=== PATIENT | male | born 1965 | race Caucasian/White ===

== ENCOUNTER 2019-12-05 13:29 | Outpatient (CLI) | payer MEDICARE, MEDICAID, SELFPAY ==
--- NOTE | ~2019-12-05 | PE_ITS ---
EXAMINATION: PET skull to mid thigh DATE: 12/05/2019 15:30 INDICATION: Other nonspecific abnormal finding of the lung field TECHNIQUE: Blood glucose level was 113 mg/dL. 10.367 mCi of 18-fluorodeoxyglucose (18-FDG) was admini stered i.v. Low dose computed tomography (CT) images were acquired from the base of the brain to the proximal thighs for attenuation correction and anatomic localization. Positron emission tomography (P ET) images were acquired in the same distribution beginning 66 minutes after injection. The dose-miguel th product (DLP) was 1064.78 mGy-cm. COMPARISON: 04/28/2010 FINDINGS: Head/neck: No abnormal FDG uptake is identified. FDG activity in the oral cavity without suspicious C T correlate is likely physiologic. Chest: There is a 2.5 x 1.6 cm left perihilar nodule with abnormal FDG uptake and SUV max of 13.2. Th ere are normal-sized bilateral axillary lymph nodes with low-level FDG uptake with SUV max measuring up to 2.0 on the left. The lungs are free of acute opacities. The heart size is normal. There is no p leural effusion or pneumothorax. Abdomen/pelvis/proximal thighs: Physiologic FDG activity is present in the bowel and urinary tract. T here is a 2.0 x 1.7 cm right external iliac chain lymph node with mild FDG uptake and SUV max of 2.7 . Right inguinal lymph nodes are subcentimeter in short axis diameter but are slightly asymmetric in size compared to the left and demonstrate low level FDG uptake with an SUV max of 2.1 The liver, sple en, pancreas, gallbladder, and adrenal glands are normal. The kidneys are unremarkable. There is calc ified atherosclerosis of the aorta and many of the other arteries. Musculoskeletal: No abnormal FDG uptake is identified. IMPRESSION: 1. Left perihilar nodule with abnormal FDG uptake, consistent with primary or metastatic malignancy. 2. Enlarged right external iliac chain lymph node with abnormal FDG uptake, reactive versus metastati c. 2. Mild FDG uptake in nonpathologically enlarged axillary and right inguinal lymph nodes, also reacti ve versus metastatic. Reviewed, dictated and finalized at location B. IMPRESSION: 1. Left perihilar nodule with abnormal FDG uptake, consistent with primary or m etastatic malignancy. 2. Enlarged right external iliac chain lymph node with abnormal FDG uptake, petty ctive versus metastatic. 2. Mild FDG uptake in nonpathologically enlarged axillary and right inguinal ly mph nodes, also reactive versus metastatic.
[2019-12-05 14:00] LABS: Glucose Point of Care 113 (65-105)
== END 2019-12-05 13:30 | disposition home or self-care (01) ==
PROVIDERS: PCP Internal Medicine; Visit Provider Internal Medicine Critical Care Medicine
DX: R91.8 Other nonspecific abnormal finding of lung field (principal)
CPT/HCPCS: 78815; A9552

== ENCOUNTER 2020-01-11 10:19 | Outpatient (CLI) | payer MEDICARE, MEDICAID, SELFPAY ==
--- NOTE | 2020-01-17 10:38 | WPDPFTINT ---
PFT Interpretation PFT Interpretation: This PFT met all criteria for ATS standards and reproducibility FEV/FVC post bronchodilator 34% FEV1 35% or 1.24 liters FVC 73% or 3.67 liters TLC 107% or 7.72 liters RV 179% RV/TLC 57% DLCO 53% when adjusted for alveolar volume but not adjusted for hemoglobin Flow volume loops showed significant expiratory coving. Impression: Severe airflow obstruction with air trapping and moderately reduced diffusion capacity. This pattern may be seen in COPD. Clinical correlation is advised.
--- NOTE | 2020-01-17 10:41 | WPDSIXMINUTE ---
Six Minute Walk Six Minute Walk: The patients O2 sats started at 96% and dropped as low as 96% Total walk distance 1025 feet conclusion: This patient does not qualify for home oxygen therapy.
== END 2020-01-11 10:20 | disposition home or self-care (01) ==
LOC: ANHPFT 10:21
PROVIDERS: PCP Internal Medicine; Visit Provider Internal Medicine Critical Care Medicine
DX: R06.02 Shortness of breath (principal); R94.2 Abnormal results of pulmonary function studies
CPT/HCPCS: 94060; 94726; 94729

== ENCOUNTER 2020-02-08 09:24 | Outpatient (CLI) | payer MEDICARE, MEDICAID, SELFPAY ==
--- NOTE | 2020-03-13 19:57 | WPDHOMESLEEP ---
Sleep Study - Home Unattended Date of Study: 02/08/20 Ordering Provider: Kanchan Roman MD Interpreting Physician: Kanchan Roman MD Home Sleep Study Type: Apnea Link Air Height: 1.83 m Weight: 102.058 kg Body Mass Index: 30.5 Neck Circumference (inches): 17.7 [place]: 5 Reason for Sleep Study shortness of breath while sleeping, gasping for breath at night, excessive daytime sleepiness Sleep History Mariano Morgan III is a 54 year-old man with COPD and a new diagnosis of lung cancer. He constantly snores and occasionally it is loud enough that others complain about it. He rarely awakens at night with heartburn, belching or coughing. He frequently wakes up from sleep feeling short of breath. He wakes up throughout the night. He has excessive daytime sleepiness. HE does not have morning headaches. He has taken sleeping pills in the past to help with his sleep, does not take them currently. He occasionally has trouble sleeping with a cold. He frequently wakes up gasping for breath at night, frequently has breathing problems at night observed by others. He occasionally sweats excessively at night. He occasionally falls asleep during the day, involuntarily but never while driving. He does not fall asleep during physical effort. He does not have loss of muscle tone with strong emotion. He does not have daytime difficulties due to excessive sleepiness. He never feels paralyzed on waking or falling asleep. He frequently has vivid dreamlike scenes upon awakening or falling asleep. He is not afraid to go to sleep. He occasionally has nightmares, occasionally remembers his dreams. He frequently has racing thoughts. He rarely feels sad or depressed. He occasionally feels anxious. He occasionally has muscular tension. He frequently notices parts of his body jerking and he frequently kicks at night. He does not have crawling or aching feelings in his legs at night or leg pain at night. He denies morning jaw pain and denies grinding his teeth during sleep. He frequently has bothered by pain during the day, rarely is awakened by pain at night. He rarely wakes up feeling stiff in the morning. He does not have sore achy muscles or spine pain in the morning. He has tremors, nightmares and fatigue. Normal bedtime is 8:00 p.m. falling asleep within a few hours waking between 3 and 5 times overnight. when he wakes up at night he will stay awake for 20 minutes or as long as 2 hours. He often wakes to urinate at night. He wakes the morning between 6 and 7:00 a.m.. He does not take naps. Most of the time he is tired in the morning for 3 hours or longer. Habits: Tobacco a half pack per day. He drinks tea. No alcohol or recreational drugs. [facility] Past Medical History Medical History (Updated 03/13/20 @ 20:35 by Kanchan Roman MD) Chronic pain COPD (chronic obstructive pulmonary disease) Hilar mass Hypersomnia Lung cancer Shortness of Breath Tobacco abuse Family History Family History (Updated 12/08/18 @ 15:08 by DOCTOR UNKNOWN) Mother Diabetes mellitus Sibling Diabetes mellitus Grandparent Family history of chronic obstructive pulmonary disease Social History Social History Smoking packs per day: 2 Smoking cigarettes per day: 40.0 Years smoked: 40 Smoking pack-years: 80.00 Smoking status: Current every day smoker Tobacco type: cigarettes Spiritual care concerns: No Medications Home Medications Medication Instructions Recorded Confirmed Type budesonide-formoterol HFA 160 2 puff INHALATION Q12H 01/03/20 02/12/20 History mcg-4.5 mcg/actuation aerosol inhaler nicotine See Rx Instructions TRANSDERM 01/03/20 02/12/20 Rx 21mg/24hr-14mg/24hr-7mg/24hr daily .COMPLEX #56 patch transderm patches,sequentl ipratropium 0.5 mg-albuterol 3 mg 3 ml INHALATION QID PRN #360 ml 01/18/20 02/12/20 Rx (2.5 mg base)/3 mL nebulization soln dexamethasone 4 mg PO DIRECTED #5 tablet 02/12/20 Rx
[2020-03-13 20:43] VITALS: BMI 30.5
== END 2020-02-08 09:25 | disposition home or self-care (01) ==
LOC: ANHCSM 09:24
PROVIDERS: PCP Internal Medicine; Visit Provider Internal Medicine Critical Care Medicine
DX: G47.33 Obstructive sleep apnea (adult) (pediatric) (principal)
CPT/HCPCS: 95806

== ENCOUNTER 2020-02-09 12:46 | Outpatient (CLI) | payer MEDICARE, MEDICAID, SELFPAY ==
--- NOTE | ~2020-02-09 | CT_ITS ---
EXAMINATION: CT chest w con DATE: 02/09/2020 13:30 INDICATION: Malignant neoplasm of upper lobe TECHNIQUE: Computed tomography (CT) of the chest was performed without intravenous contrast. Automate d exposure control and iterative reconstruction technique were employed. Exam dose: 435.52 mGy-cm to jacqui exam DLP. COMPARISON: None FINDINGS: There is a persistent approximately 1.7 x 2.5 cm mass in the left hilar area which may repr esent primary bronchogenic carcinoma or metastatic lymphadenopathy or lymphoma. This appears relative ly stable since 12/05/[address] scan. There are scattered nonenlarged mediastinal nodes are noted. There is mild discoid atelectasis or scarring in the right lung base, right lower lobe. There is a ca lcified pulmonary granuloma of the middle lobe. No pulmonary infiltrate or consolidation or pulmonary mass lesion is noted otherwise. No thoracic aortic aneurysm or dissection. Normal heart size. No pericardial or pleural effusion. Small sliding hiatal hernia. Normal morphology of the adrenal glands. The included upper abdominal structures are unremarkable. No suspicious osteolytic or osteoblastic lesions are noted. IMPRESSION: Persistent left hilar mass, suspicious for primary bronchogenic carcinoma or metastatic lymphadenopathy or less likely lymphoma; little interval change since 12/05/[address] scan Reviewed, dictated and finalized at Location [facility]. Reviewed, dictated and finalized at location A. [employer] IMPRESSION: Persistent left hilar mass, suspicious for primary bronchogenic ca rcinoma or metastatic lymphadenopathy or less likely lymphoma; little interval change since 12/05/[address] scan
== END 2020-02-09 12:47 | disposition home or self-care (01) ==
PROVIDERS: PCP Internal Medicine; Visit Provider Radiology Radiation Oncology
DX: C34.12 Malignant neoplasm of upper lobe, left bronchus or lung (principal)
CPT/HCPCS: 71260; Q9967

== ENCOUNTER 2020-04-30 09:06 | Outpatient (CLI) | payer MEDICARE, MEDICAID, SELFPAY ==
[2020-04-30 09:22] LABS: Basophils Absolute Auto 0.1 K/mm3 (0.0-0.1); Basophils Percent Auto 1.2 % (0.2-1.2); Eosinophils Absolute Auto 0.4 K/mm3 (0-0.3); Eosinophils Percent Auto 6.1 % (0-4.4); Hemoglobin 16.2 g/dL (14.0-18.0); Immature Granulocyte Absolute 0.02 K/mm3 (0.00-0.031); Immature Granulocyte Percent A 0.3 % (0-0.5); Lymphocytes Absolute Auto 1.22 K/mm3 (0.9-3.2); Lymphocytes Percent Auto 18.2 % (18.3-44.2); Mean Corpuscular HGB Conc 33.8 g/dl (32-36); Mean Corpuscular Hemoglobin 30.2 pg (26-34); Mean Corpuscular Volume 89.6 fl (80-100); Mean Platelet Volume 8.8 fl (7.4-10.4); Monocytes Absolute Auto 0.5 K/mm3 (0.1-0.6); Monocytes Percent Auto 7.5 % (2.6-8.5); Neutrophils Absolute Auto 4.5 K/mm3 (1.3-6.7); Neutrophils Percent Auto 66.7 % (45.5-73.1); Platelet Count Result 260 k/mm3 (150-375); Red Blood Count 5.36 M/mm3 (4.6-6.20); Red Cell Distribution Width 12.6 % (11.5-14.5); White Blood Count 6.7 K/mm3 (4.5-10.0)
[2020-04-30 09:28] LABS: Blood Urea Nitrogen 20 mg/dL (8-26); Carbon Dioxide 27 mmol/L (22-30); Chloride 102 mmol/L (98-109); Estimated Glomerular Filt Rate > 60; Glucose 157 mg/dL (70-105); Potassium 4.2 mmol/L (3.5-4.9); Sodium 137 mmol/L (138-146)
[2020-04-30 12:59] LABS: Alanine Aminotransferase 21 U/L (4-50); Albumin Level 3.8 g/dL (3.5-5.1); Alkaline Phosphatase 94 U/L (38-126); Anion Gap 6 mmol/L (8-16); Aspartate Amino Transferase 23 U/L (17-59); Bilirubin,Total 0.5 mg/dL (0.2-1.3); Blood Urea Nitrogen 19 mg/dL (9-20); Carbon Dioxide 28 mmol/L (22-30); Chloride 103 mmol/L (98-107); Estimated Glomerular Filt Rate > 60; Glucose 160 mg/dL (75-110); Potassium 4.5 mmol/L (3.4-5.0); Sodium 137 mmol/L (137-145)
== END 2020-04-30 09:07 | disposition home or self-care (01) ==
PROVIDERS: PCP Internal Medicine; Visit Provider Internal Medicine Hematology & Oncology
DX: C34.02 Malignant neoplasm of left main bronchus (principal)
CPT/HCPCS: 36415; 80048; 80053; 85025

== ENCOUNTER 2020-05-08 13:06 | Outpatient (CLI) | payer MEDICARE, MEDICAID, SELFPAY ==
--- NOTE | ~2020-05-08 | CT_ITS ---
EXAMINATION: CT diagnostic chest w con DATE: 05/08/2020 13:28 INDICATION: Malignant neoplasm of the left upper lobe. TECHNIQUE: Computed tomography (CT) of the chest was performed with 75 cc Omnipaque 350 intravenous c ontrast. The dose-length product was 419.15 mGy-cm. Automated exposure control and iterative reconstr uction technique were employed. COMPARISON: CT dated 02/09/2020 FINDINGS: Decreased size of left hilar mass measuring 2.5 x 1.1 cm compared with 2.9 x 1.8 cm on prio r examination. No significant pleural or pericardial effusion. Heart size normal. Thyroid gland unrem arkable. Stable 1.5 cm left adrenal nodule, likely benign adenoma. Fatty infiltration of the liver. There is e mphysema. Right lower lobe atelectasis. There is right middle lobe atelectasis/scarring no endobronch ial lesions. No suspicious pulmonary nodules or masses. No osteolytic or osteoblastic lesions.. IMPRESSION: 1. Decreased size of left hilar mass, likely representing interval response to therapy for known eva gnancy. 2: Emphysema. Reviewed, dictated and finalized at location B. [employer] IMPRESSION: 1. Decreased size of left hilar mass, likely representing interval response to therapy for known malignancy. 2: Emphysema.
== END 2020-05-08 13:07 | disposition home or self-care (01) ==
PROVIDERS: PCP Internal Medicine; Visit Provider Internal Medicine Hematology & Oncology
DX: C34.02 Malignant neoplasm of left main bronchus (principal); J43.9 Emphysema, unspecified
CPT/HCPCS: 71260; Q9967

== ENCOUNTER 2020-08-07 13:15 | Outpatient (CLI) | payer MEDICARE, MEDICAID, SELFPAY ==
--- NOTE | ~2020-08-07 | CT_ITS ---
EXAMINATION: CT diagnostic chest w con EXAM DATE: 08/07/2020 13:44 INDICATION: Lung cancer left-sided. TECHNIQUE: Spiral CT of the chest following intravenous injection of 75 mL Omnipaque 350. Axial, cor onal and sagittal images of the chest were reviewed. Coronal maximum intensity pixel images of chest reviewed. The dose-length product (DLP) for this examination was 292.00 mGy-cm. The exposure was t ailored according to patient size (auto mA exposure control), and iterative reconstruction (ASIR) was used as additional dose reduction technique. Comparison is made to prior examination from 05/08/2020, 02/08/2021. FINDINGS: Patient has infiltrative left hilar masslike region surrounding left upper lobe interlobar artery, causing mild narrowing of this at its origin off the mainstem bronchus. Overall volume is ei ther stable or slightly improved compared to prior study, likely response to treatment. Appearance is infiltrative, difficult to measure any specific region. More noticeable decrease in volume compared to study from January. No central pulmonary emboli. There are no pleural or pericardial effusions. Tracheobronchial tree i s patent. There is no mediastinal, hilar or axillary lymphadenopathy. There is no pneumothorax. Heart normal in size. No evidence of coronary arterial calcification. There is a left adrenal gland nodule measuring 1.2 cm, does not appear significantly changed correlat ing to a prior abdomen pelvis CT 2019. Probably adenoma but nonspecific. There is thoracic spondylos is without osteoblastic or osteolytic lesions identified. IMPRESSION: 1. Left hilar infiltrative soft tissue, stable or slight decrease in volume. 2. Left adrenal nodule, stable. Reviewed, dictated and finalized at location A.
== END 2020-08-07 13:16 | disposition home or self-care (01) ==
PROVIDERS: PCP Internal Medicine; Visit Provider Internal Medicine Hematology & Oncology
DX: C34.92 Malignant neoplasm of unspecified part of left bronchus or lung (principal)
CPT/HCPCS: 71260; Q9967

== ENCOUNTER 2020-08-22 13:40 | Outpatient (CLI) | payer MEDICARE, MEDICAID, SELFPAY ==
[2020-08-22 13:56] LABS: Basophils Absolute Auto 0.1 K/mm3 (0.0-0.1); Basophils Percent Auto 0.7 % (0.2-1.2); Eosinophils Absolute Auto 0.3 K/mm3 (0-0.3); Eosinophils Percent Auto 3.1 % (0-4.4); Hematocrit 49.1 % (42.0-52.0); Hemoglobin 16.7 g/dL (14.0-18.0); Immature Granulocyte Absolute 0.03 K/mm3 (0.00-0.031); Immature Granulocyte Percent A 0.3 % (0-0.5); Lymphocytes Absolute Auto 1.88 K/mm3 (0.9-3.2); Lymphocytes Percent Auto 21.4 % (18.3-44.2); Mean Corpuscular Hemoglobin 30.5 pg (26-34); Mean Corpuscular Volume 89.8 fl (80-100); Mean Platelet Volume 8.4 fl (7.4-10.4); Monocytes Absolute Auto 0.7 K/mm3 (0.1-0.6); Monocytes Percent Auto 7.7 % (2.6-8.5); Neutrophils Absolute Auto 5.9 K/mm3 (1.3-6.7); Neutrophils Percent Auto 66.8 % (45.5-73.1); Platelet Count Result 287 k/mm3 (150-375); Red Blood Count 5.47 M/mm3 (4.6-6.20); Red Cell Distribution Width 12.7 % (11.5-14.5); White Blood Count 8.8 K/mm3 (4.5-10.0)
[2020-08-22 13:59] LABS: Blood Urea Nitrogen 17 mg/dL (8-26); Carbon Dioxide 28 mmol/L (22-30); Chloride 99 mmol/L (98-109); Estimated Glomerular Filt Rate > 60; Glucose 109 mg/dL (70-105); Sodium 137 mmol/L (138-146)
[2020-08-22 14:57] LABS: Alanine Aminotransferase 17 U/L (4-50); Alkaline Phosphatase 106 U/L (38-126); Anion Gap 8 mmol/L (8-16); Aspartate Amino Transferase 18 U/L (17-59); Bilirubin,Total 0.3 mg/dL (0.2-1.3); Blood Urea Nitrogen 17 mg/dL (9-20); Calcium 9.4 mg/dL (8.4-10.2); Carbon Dioxide 29 mmol/L (22-30); Chloride 101 mmol/L (98-107); Estimated Glomerular Filt Rate > 60; Glucose 110 mg/dL (75-110); Potassium 4.3 mmol/L (3.4-5.0); Sodium 138 mmol/L (137-145)
== END 2020-08-22 13:41 | disposition home or self-care (01) ==
LOC: ANHLAB 13:46
PROVIDERS: PCP Internal Medicine; Visit Provider Internal Medicine Hematology & Oncology
DX: C34.02 Malignant neoplasm of left main bronchus (principal)
CPT/HCPCS: 36415; 80048; 80053; 85025

== ENCOUNTER 2020-11-11 10:10 | Outpatient (CLI) | payer MEDICARE, MEDICAID, SELFPAY ==
--- NOTE | ~2020-11-11 | CT_ITS ---
EXAMINATION:CT diagnostic chest w con DATE: 11/11/2020 10:56 INDICATION: Malignant neoplasm of hilum of left lung. TECHNIQUE: Computed tomography (CT) of the chest was performed with 75 mL Omnipaque 350 intravenous c ontrast. Automated exposure control and iterative reconstruction technique were employed. The dose-le ngth product (DLP) was 316.24 mGy-cm. COMPARISON: Chest CT 08/07/2020, PET CT 12/05/2019, CT abdomen and pelvis 10/03/19 FINDINGS: There is mild emphysema. There is mild atelectasis bilaterally. There is a left hilar mass with worsened total occlusion of the left upper lobe bronchus. The mass measures 3.4 x 2.1 cm, increa sed from 2.3 x 1.3 cm. There are mild airspace opacities in the left perihilar region, and there is f at stranding in the mediastinum, likely changes of radiation therapy. There is a trace left pleural e ffusion. The heart size is normal. No pericardial effusion. There is mild mediastinal lymphadenopathy . A right paratracheal node measures 16 x 12 mm, increased from 14 x 8 mm on 08/07/20. There is a 7 mm cyst in the liver. There is a 12 mm mass in left adrenal gland without change in size from 10/03/2019 and without increased activity on prior PET, likely an adenoma. There is mild thoracic spondylosis. T here is mild chronic height loss of multiple vertebral bodies. IMPRESSION: 1. Worsened left hilar mass and worsened mild mediastinal lymphadenopathy, consistent with primary br onchogenic carcinoma and metastatic disease. Reviewed, dictated and finalized at location B. IMPRESSION: 1. Worsened left hilar mass and worsened mild mediastinal lymphadenopathy, cons istent with primary bronchogenic carcinoma and metastatic disease.
== END 2020-11-11 10:11 | disposition home or self-care (01) ==
LOC: ANHIMG 10:17
PROVIDERS: PCP Internal Medicine; Visit Provider Internal Medicine Hematology & Oncology
DX: C34.02 Malignant neoplasm of left main bronchus (principal); R59.0 Localized enlarged lymph nodes
CPT/HCPCS: 71260; Q9967

== ENCOUNTER 2020-11-20 14:17 | Outpatient (CLI) | payer MEDICARE, MEDICAID, SELFPAY ==
[2020-11-20 14:31] LABS: Basophils Percent Auto 0.4 % (0.2-1.2); Eosinophils Absolute Auto 0.2 K/mm3 (0-0.3); Eosinophils Percent Auto 2.4 % (0-4.4); Hematocrit 44.7 % (42.0-52.0); Immature Granulocyte Absolute 0.04 K/mm3 (0.00-0.031); Immature Granulocyte Percent A 0.4 % (0-0.5); Lymphocytes Absolute Auto 1.41 K/mm3 (0.9-3.2); Lymphocytes Percent Auto 15.5 % (18.3-44.2); Mean Corpuscular HGB Conc 33.6 g/dl (32-36); Mean Corpuscular Hemoglobin 30.1 pg (26-34); Mean Corpuscular Volume 89.8 fl (80-100); Mean Platelet Volume 8.2 fl (7.4-10.4); Monocytes Absolute Auto 0.5 K/mm3 (0.1-0.6); Monocytes Percent Auto 5.9 % (2.6-8.5); Neutrophils Absolute Auto 6.8 K/mm3 (1.3-6.7); Neutrophils Percent Auto 75.4 % (45.5-73.1); Platelet Count Result 371 k/mm3 (150-375); Red Blood Count 4.98 M/mm3 (4.6-6.20); Red Cell Distribution Width 12.5 % (11.5-14.5); White Blood Count 9.1 K/mm3 (4.5-10.0)
[2020-11-20 14:37] LABS: Blood Urea Nitrogen 17 mg/dL (8-26); Carbon Dioxide 28 mmol/L (22-30); Chloride 98 mmol/L (98-109); Estimated Glomerular Filt Rate > 60; Glucose 116 mg/dL (70-105); Potassium 4.1 mmol/L (3.5-4.9); Sodium 137 mmol/L (138-146)
[2020-11-20 19:26] LABS: Alanine Aminotransferase 16 U/L (4-50); Albumin Level 3.7 g/dL (3.5-5.1); Alkaline Phosphatase 100 U/L (38-126); Anion Gap 5 mmol/L (8-16); Aspartate Amino Transferase 19 U/L (17-59); Bilirubin,Total 0.2 mg/dL (0.2-1.3); Blood Urea Nitrogen 16 mg/dL (9-20); Calcium 9.7 mg/dL (8.4-10.2); Carbon Dioxide 29 mmol/L (22-30); Chloride 98 mmol/L (98-107); Estimated Glomerular Filt Rate > 60; Glucose 120 mg/dL (65-110); Potassium 4.2 mmol/L (3.4-5.0); Sodium 132 mmol/L (137-145)
== END 2020-11-20 14:18 | disposition home or self-care (01) ==
LOC: ANHLAB 14:22
PROVIDERS: PCP Internal Medicine; Visit Provider Internal Medicine Hematology & Oncology
DX: C34.02 Malignant neoplasm of left main bronchus (principal)
CPT/HCPCS: 36415; 80048; 80053; 85025

== ENCOUNTER 2020-11-26 10:39 | Outpatient (CLI) | payer MEDICARE, MEDICAID, SELFPAY ==
--- NOTE | ~2020-11-26 | PE_ITS ---
EXAMINATION: PET skull to mid thigh DATE: 11/26/2020 12:40 INDICATION: Malignant neoplasm of the hilum of the left lung TECHNIQUE: Blood glucose level was 103 mg/dL. 9.776 mCi of 18-fluorodeoxyglucose (18-FDG) was adminis tered i.v. Low dose computed tomography (CT) images were acquired from the base of the brain to the p roximal thighs for attenuation correction and anatomic localization. Positron emission tomography (PE T) images were acquired in the same distribution beginning 57 minutes after injection. Images includi ng fused PET/CT images were reconstructed in axial, coronal, and sagittal planes. Automated exposure control technique was employed. The dose-length product was 738.81mGy-cm. COMPARISON: 12/05/2019 FINDINGS: Head/neck: There is symmetric increased activity in the oral cavity, palatine tonsils, parotid glands, laryngea l muscles and ocular muscles without CT correlate, likely physiologic. No pathologically enlarged cer vical lymphadenopathy or suspicious foci of increased FDG uptake in the visualized head or neck. Chest: Mild emphysema. Mild bilateral dependent and basilar atelectasis. No suspicious pulmonary nodules, pn eumonia, pulmonary edema or pleural effusion. There is mild to moderate increased FDG uptake with max imal SUV of 4.1 at the left hilum in the region of the previously noted enlarging mass surrounding th e left upper lobar bronchus which is difficult to distinguish from the adjacent vasculature on the cu rrent noncontrast CT images. There is more prominent moderate increased uptake with maximal SUV of 5. 3 along the posterior margin of distal left mainstem bronchus which appears to correspond to a couple left bronchial lymph nodes on the prior CT at which time the larger measured 13 x 7 mm which is incr eased from the earlier CT on 08/07/2020 at which time it measured 11 x 5-6 mm. There is also mild FDG uptake with maximal SUV of 2.3 associated with the previously described enlarging 1.6 x 1.2 cm right paratracheal lymph node. Heart size is normal. Abdomen/pelvis/proximal thighs: Physiologic renal accumulation and excretion of FDG activity in the kidneys, bladder and along portio ns of ureters. Normal degree and heterogenous pattern of increased uptake throughout the liver withou t radiologic correlate or dominant FDG avid lesion. The gallbladder, pancreas, spleen and right adren al gland are normal. No interval change in a a 12 mm left adrenal nodule which remains without FDG up take most likely an adenoma. Mild uptake scattered throughout the bowels without radiologic correlate , also likely physiologic. Small fat-containing left inguinal hernia. No other abnormal foci of incre ased FDG uptake or pathologically enlarged lymphadenopathy in the abdomen, pelvis or proximal thighs. Musculoskeletal: No evident lytic, blastic or FDG avid bone lesions. IMPRESSION: 1. Mild to moderate increased uptake associated with both the enlarging mass at the left hilum surrou nding the upper lobe bronchus as well as a few enlarging mediastinal lymph nodes consistent with prog ression of primary bronchogenic carcinoma and metastatic disease. Reviewed, dictated and finalized at location A. IMPRESSION: 1. Mild to moderate increased uptake associated with both the enlarging mass at the left hilum surrounding the upper lobe bronchus as well as a few enlarging mediastinal lymph nodes consistent with progression of primary bronchogenic car cinoma and metastatic disease.
[2020-11-26 11:06] LABS: Glucose Point of Care 103 mg/dl (65-105)
== END 2020-11-26 10:40 | disposition home or self-care (01) ==
PROVIDERS: PCP Internal Medicine; Visit Provider Internal Medicine Hematology & Oncology
DX: R91.8 Other nonspecific abnormal finding of lung field (principal)
CPT/HCPCS: 78815; A9552

== ENCOUNTER 2021-01-14 00:41 | Inpatient (IN) | payer MEDICARE, MEDICAID, SELFPAY ==
[2021-01-14] VITALS (45 sets, daily range): BP systolic 91–135; BP diastolic 64–89; PULSE 68–90; RESP 21–28; TEMP 35.8–37.5; O2SAT 96–100; BMI 25.8; BMI 26.9
--- NOTE | 2021-01-14 | ECHO_ITS ---
Patient Info Name: Mariano Morgan Age: 55 years : 1965 Gender: Male Ht: 72 in Wt: 199 lbs BSA: 2.15 m2 HR: 77 bpm BP: 109 / 78 mmHg Exam Date: 01/14/2021 8:09 AM Exam Location: [facility] Patient Status: Inpatient Admit Date: 01/14/2021 Staff Ordering Physician: Lyndsay Triplett MD Cook Mess: Justin Meade RDCS, RT Attending Provider: Lyndsay Triplett MD Referring Physician: Ioana TERRAZAS; Exam Type: CA echo doppler color flow Study Info Indications J96.00 - Acute respiratory failure, unspecified whether with hypoxia or hypercapnia Complete two-dimensional, color flow and Doppler transthoracic echocardiogram is performed. Strain analysis performed. Summary 1. Complete two-dimensional, color flow and Doppler transthoracic echocardiogram is performed. 2. Technically difficult study, suboptimal image quality. Normal LV size, mild LVH, normal LV systolic function, EF 60-65%. Normal diastolic function. Borderline left atrial enlargement. Normal mitral valve structure, no significant MR. Aortic valve not visualized, no hemodynamically significant stenosis by Doppler. Unable to assess RVSP due to inadequate TR jet. Dilated IVC without respiratory collapse. Left Ventricle Left ventricular chamber dimension is normal. Left ventricular systolic function is normal, estimated at 60-65%. There is mildly increased left ventricular wall thickness. Right Ventricle Right ventricular chamber dimension is normal. Right ventricular systolic function is normal. Left Atria Left atrial chamber dimension is normal. Right Atria Right atrial chamber dimension is normal. Aortic Valve The aortic valve is not well visualized. There is no aortic valve stenosis. Pulmonic Valve The pulmonic valve is not well visualized. Mitral Valve The mitral valve has normal leaflets. There is no mitral valve regurgitation. Tricuspid Valve The tricuspid valve leaflets are normal. Pericardium/Pleural The pericardium appears normal. Inferior Vena Cava Dilated inferior vena cava with no collapse upon inspiration consistent with elevated right atrial pressure, 15 mmHg. Aorta The aortic root size at the sinus of Valsalva is not well visualized. Left Ventricular Outflow Tract Name Value Normal LVOT 2D LVOT Diameter 2.0 cm LVOT Doppler LVOT Peak Gradient 3 mmHg LVOT Mean Gradient 2 mmHg LVOT VTI 16 cm LVOT VTI/AV VTI Ratio 0.8 LVOT Stroke Volume 51 ml LVOT CO 3.9 l/min LVOT CI 1.8 l/min/m2 Mitral Valve Name Value Normal MV Doppler MV Decel Lares 228 cm/s2 MV PHT 77 ms
--- NOTE | ~2021-01-14 | XR_ITS ---
EXAMINATION: XR abdomen NG/feed tube insert DATE: 01/14/2021 01:07 INDICATION: Orogastric tube placement. TECHNIQUE: An upright view of the abdomen was obtained. COMPARISON: None. FINDINGS: The lower abdomen is excluded. There are no dilated loops of bowel. The nasogastric tube ti p is in the stomach. IMPRESSION: 1. Nasogastric tube tip in the stomach. Reviewed, dictated and finalized at location A.
--- NOTE | ~2021-01-14 | XR_ITS ---
EXAMINATION: XR chest ET placement DATE: 01/14/2021 01:07 INDICATION: Intubation. TECHNIQUE: A single frontal view of the chest was obtained. COMPARISON: Chest single view 10/03/2019, PET/CT 11/26/2020 FINDINGS: The lateral costophrenic angles are excluded. There is no pneumonia, pleural effusion, or p neumothorax. The heart size is normal. The endotracheal tube tip is 5.1 cm above the fercho. The naso gastric tube tip is beyond the inferior margin of the radiograph, but at least to the stomach. IMPRESSION: 1. No acute cardiopulmonary disease. Reviewed, dictated and finalized at location A.
--- NOTE | ~2021-01-14 | XR_ITS ---
EXAMINATION: XR chest 1V portable DATE: 01/15/2021 05:44 INDICATION: Intubation. TECHNIQUE: A single frontal view of the chest was obtained. COMPARISON: Chest single view 01/14/2021, chest CT 01/13/2021 FINDINGS: There are mild airspace opacities in left mid and lower lung zones. No pleural effusion or pneumothorax. The heart size is normal. The endotracheal tube tip is 5.3 cm above the fercho. The cl ogastric tube tip is in the stomach. IMPRESSION: 1. Mild airspace opacities in left mid and lower lung zones, consistent with pneumonia. Reviewed, dictated and finalized at location A. IMPRESSION: 1. Mild airspace opacities in left mid and lower lung zones, consistent with pn eumonia.
[2021-01-14] MEDS: PROPOFOL IV EMULSION 100 ML 31.14 MG IV CONT (00:50)
[2021-01-14] MEDS: FENTANYL 2,500MCG/NS250ML(*CRX 2,500 MCG/250 ML BAG 7.5 MCG IV CONT (01:00)
[2021-01-14 01:26] LABS: Alveolar/Arterial O2 Gradient 80.2 mmHg; Base Excess ABG -1.2 mEq/l (+/-2.0); Carboxyhemoglobin 0.5 % THb (0-2.0); Fractional Inspired Oxygen 55 %; HCO3 ABG 26.2 mEq/l (22.0-26.0); Methemoglobin ABG 0.5 %THb (0-1.5); Oxygen Content ABG 21.1 %vol (16.0-22.0); Oxygen Saturation ABG 99.5 % (95.0-100.0); PCO2 ABG 54.5 mmHg (35.0-45.0); PO2 ABG 251.3 mmHg (80.0-100.0); PO2 FiO2 Ratio Arterial Blood 4.57 %; Total Hemoglobin 14.9 g/dL (12.0-18.0)
[2021-01-14 01:27] LABS: Arterial Blood Gas PEEP 5 cmH2O; Arterial Blood Gas Tidal Volume 500 ml; Arterial Blood Gas Vent Mode CMV; Arterial Blood Gas Ventilator rate 22 /MIN; Device VENTILATOR; Modified Allen's Test Pass; Site Drawn RIGHT RADIAL
[2021-01-14] MEDS: MIDAZOLAM 100MG/NS 100ML(*CRX) 100 MG/100 ML BAG IV CONT (01:35)
[2021-01-14] MEDS: DEXTROSE 5%/0.9% SOD CHL 1,000 ML 100 ML IV CONT (01:41)
[2021-01-14] MEDS: FUROSEMIDE INJ 40 MG/4 ML VIAL IV PUSH (02:20)
[2021-01-14] MEDS: methylPREDNISolone SOD SUCC 125 MG VIAL IV PUSH (02:20)
[2021-01-14] MEDS: IPRATROPIUM BR 0.02% INH SOLN 0.5 MG/2.5 ML VIAL INHALATION ×6 (02:45→23:37)
[2021-01-14] MEDS: ALBUTEROL SULFATE NEB 2.5 MG/0.5 ML INH 5 MG INHALATION ×6 (02:45→23:37)
--- NOTE | 2021-01-14 04:36 | PM.IMHP ---
H&P: HPI History of Present Illness Date/Time: 01/14/21 04:36 Chief Complaint: SHORTNESS OF BREATH Narrative: THIS IS A 55-YEAR-OLD MALE WITH PAST MEDICAL HISTORY SIGNIFICANT FOR COPD/EMPHYSEMA, OBSTRUCTIVE SLEEP APNEA, TOBACCO DEPENDENCE, LUNG CANCER UNDERGOING RADIATION THERAPY STAGE III OF THE LEFT MAIN BRONCHUS. PATIENT CAME A TRANSFER FROM [facility] AFTER HE WAS TAKING THERE VIA EMS PATIENT WAS INTUBATED IN THE FIELD HE HAD RESPIRATORY FAILURE. ACCORDING TO HISTORY PATIENT HAD HAD A HEMOPTYSIS EPISODE AND WAS SEVERELY SHORT OF BREATH. HISTORY TAKING IS LIMITED PATIENT IS CURRENTLY SEDATED AND ON VENTILATOR SUPPORT MOST OF THE HISTORY HAS BEEN OBTAINED UPON REVIEWING MEDICAL RECORDS AND DISCUSSION WITH TRANSFERRING DOCTOR. PATIENT WAS TRANSFERRED TO OUR INTENSIVE CARE UNIT AT THE TIME OF MY VISIT PATIENT IS UNDER SEDATION AND ON VENTILATOR SUPPORT. PRELIMINARY STUDIES CBC AND CHEMISTRY PANEL ESSENTIALLY NONREVEALING ABG WITH A PH OF 7.3 AND A PCO2 OF 54 PO2 OF 254 WHILE ON VENTILATOR FIO2 OF 50%. Review of Systems Review of Systems: ROS unobtainable: Yes unobtainable due to medical condition (PATIENT IS UNDER SEDATION INTUBATED ON LIFE SUPPORT) [facility] Past Medical History Medical History (Updated 01/14/21 @ 04:47 by Lyndsay Triplett MD) Chronic pain COPD (chronic obstructive pulmonary disease) Hilar mass Hypersomnia Lung cancer Shortness of Breath Tobacco abuse Family History Family History Mother Diabetes mellitus Sibling Diabetes mellitus Grandparent Family history of chronic obstructive pulmonary disease Social History Social History Smoking packs per day: 2 Smoking cigarettes per day: 40.0 Years smoked: 40 Smoking pack-years: 80.00 Smoking status: Current every day smoker Tobacco type: cigarettes Spiritual care concerns: No Meds Home Medications and Allergies Home Medications Medication Instructions Recorded Confirmed Type inhalational spacing device #10 ea 08/29/20 01/14/21 Rx nicotine 7 mg/24 hr daily 1 patch TRANSDERMAL DAILY #14 ea 08/29/20 01/14/21 Rx transdermal patch roflumilast 500 mcg tablet 500 mcg PO DAILY #30 tablet 10/01/20 01/14/21 Rx budesonide 0.5 mg/2 mL suspension 0.5 mg INHALATION BID #120 ml 12/10/20 01/14/21 Rx for nebulization formoterol fumarate 20 mcg/2 mL 2 ml INHALATION BID #120 ml 12/10/20 01/14/21 Rx solution for nebulization prednisone 10 mg tablet 10 mg PO DIRECTED #30 tablet 01/07/21 01/14/21 Rx albuterol sulfate 2 puff INHALATION Q4H PRN 01/14/21 01/14/21 History alprazolam 0.5 mg PO TID PRN 01/14/21 01/14/21 History ipratropium-albuterol 3 ml INHALATION QID PRN 01/14/21 01/14/21 History Allergies Allergy/AdvReac Type Severity Reaction Status Date / Time No Known Allergies Allergy Unknown Verified 12/19/20 08:39 Vital Signs Vital Signs - 24 hr 01/14/21 00:40 01/14/21 00:45 01/14/21 00:54 Temperature 96.5 F L Pulse Rate 87 87 Respiratory Rate 22 H Blood Pressure 135/89 Pulse Oximetry 100 100 100 01/14/21 01:00 01/14/21 02:00 01/14/21 02:47 Temperature Pulse Rate 90 86 87 Respiratory Rate 22 H 22 H 22 H Blood Pressure 121/86 Pulse Oximetry 100 01/14/21 03:03 01/14/21 04:00 Temperature Pulse Rate 83 78 Respiratory Rate 22 H Blood Pressure Pulse Oximetry 100 Exam Narrative: ON VENTILATOR SUPPORT Const: General: comfortable and other (UNDER SEDATION ON VENTILATOR SUPPORT) Nutritional Appearance: average body habitus Orientation/consciousness: Other orientation findings (SEDATED) HENMT: Head: normal to inspection, normocephalic and atraumatic Face and sinus: normal facial exam Mouth: Yes Normal oral and palatal mucosa present and Yes other (ETT IN PLACE) Eyes: General: appearance normal, both eyes and all related structures Pupils: Equal, round and reactive pup
[2021-01-14] MEDS: PROPOFOL IV EMULSION 100 ML 10.38 MG IV CONT (05:33)
[2021-01-14 05:39] LABS: Prothrombin Time 13.1 Seconds (11.1-14.7)
[2021-01-14 05:51] LABS: Anion Gap 8 mmol/L (8-16); Blood Urea Nitrogen 21 mg/dL (9-20); Calcium 8.6 mg/dL (8.4-10.2); Carbon Dioxide 27 mmol/L (22-30); Chloride 103 mmol/L (98-107); Estimated CRCL calculation 79 ml/min; Estimated Glomerular Filt Rate > 60; Glucose 138 mg/dL (65-110); Potassium 4.8 mmol/L (3.4-5.0); Sodium 138 mmol/L (137-145)
--- NOTE | 2021-01-14 06:05 | ADMGEN ---
This patient, Mariano Morgan III, was admitted to Intensive Care Unit-8 on 01/13/2021 at 0040. Patient/family oriented to hospital policies and general routines including ID bracelet, bed and alarms, visiting hours, pain management, procedures, bathroom and other care routines, personal items, smoking policy, room service/diet, and visiting hours. Information on how to activate the Rapid Response Team has been discussed. Patient/Family are encouraged to report perceived risks to care and to ask questions if they do not understand what they are told or what they should do.
[2021-01-14] MEDS: methylPREDNISolone SOD SUCC 40 MG VIAL IV PUSH (06:44)
--- NOTE | 2021-01-14 06:59 | PC.NURSE ---
Patient's Girlfriend called for update, was not able to give RN a good medical history. Left her number and patient's mothers number. Attempted to call patient's mother Neida Morgan but no answer and no voicemail set up.
[2021-01-14] MEDS: BUDESONIDE RESPULE NEB 0.5 MG/2 ML AMP INHALATION ×2 (07:54→19:50)
--- NOTE | 2021-01-14 08:30 | PC.NURSE ---
Updated daughter and mother on patient condition.
[2021-01-14 09:07] LABS: Hematocrit 43.7 % (42.0-52.0); Hemoglobin 14.3 g/dL (14.0-18.0); Mean Corpuscular HGB Conc 32.7 g/dl (32-36); Mean Corpuscular Hemoglobin 29.9 pg (26-34); Mean Corpuscular Volume 91.4 fl (80-100); Mean Platelet Volume 8.3 fl (7.4-10.4); Platelet Count Result 304 k/mm3 (150-375); Red Blood Count 4.78 M/mm3 (4.6-6.20); Red Cell Distribution Width 12.7 % (11.5-14.5); White Blood Count 14.7 K/mm3 (4.5-10.0)
[2021-01-14] MEDS: MINERAL OIL/WHITE PETROLATUM OINTMENT 1 APPLIC EACH EYE ×2 (09:10→21:00)
--- NOTE | 2021-01-14 09:50 | WPDCNINT ---
Assessment and Plan Assessment and plan (1) Acute respiratory failure with hypoxia and hypercarbia: Code(s): J96.01 - Acute respiratory failure with hypoxia; J96.02 - Acute respiratory failure with hypercapnia Status: Acute Assessment and Plan: Acute Respiratory failure secondary to COPD exacerbation, pneumonia with baseline lung cancer, ? hemoptysis Continue full mechanical ventilation support to prevent hypoxemia/hypercarbia and end organ damage. ABG and PCXR reviewed and will repeat in am. Low tidal volume ventilation strategy to prevent volutrauma Increased respiratory to 24 Continue steroids and Bronchodilators Continue vancomycin and Zosyn Culture sent and are pending Discussed with pulmonary for possible bronchoscopy to evaluate for hemoptysis, narrowing of the bronchus and possible biopsy (2) Malignant neoplasm of upper lobe, left bronchus or lung: Code(s): C34.12 - Malignant neoplasm of upper lobe, left bronchus or lung Status: Acute Assessment and Plan: Patient has a history of medically inoperable newly diagnosed early stage (T1 N0 M0 or TX N1 M0) non-small cell lung cancer (squamous cell carcinoma) arising as a single mass in the left perihilar region. He completed a course of SBRT between 02/27/2020 and 03/12/2020. He had a CT 11/11/2020 which showed mediastinal adenopathy but relatively low uptake on PET. Per notes he had some respiratory infection prior to that and imaging was not definitive. The oncologist was considering bronchoscopic biopsy of mediastinal lymph nodes to evaluate for recurrent lung cancer. 01/13 CT scan done at [facility] showed 3.5 in to 2.5 cm left hilar mass with narrowing of upper and lower lobe bronchi also showed airspace opacities in right middle lobe suggestive of pneumonia I have discussed case with Pulmonary and they will evaluate patient for bronchoscopy and possible biopsy since patient is now intubated (3) Sepsis: Code(s): A41.9 - Sepsis, unspecified organism Status: Acute Assessment and Plan: Patient presented with elevated lactic acid above 10 likely secondary to sepsis from pneumonia and COPD His lactic acidosis cleared with IV fluid bolus and he has not required any vasopressor Continue IV antibiotics as above Cultures have been sent and are pending (4) Obstructive sleep apnea: Onset Date: ~01/2020 Code(s): G47.33 - Obstructive sleep apnea (adult) (pediatric) Status: Acute Assessment and Plan: CURRENTLY ON VENTILATOR (5) COPD exacerbation: Code(s): J44.1 - Chronic obstructive pulmonary disease with (acute) exacerbation Status: Acute Assessment and Plan: See above (6) Hemoptysis: Code(s): R04.2 - Hemoptysis Status: Acute Assessment and Plan: See above (7) Tobacco abuse: Code(s): Z72.0 - Tobacco use Status: Acute Assessment and Plan: Currently intubated and sedated and not a candidate for counseling Additional Plan DVT prophylaxis -SCDs due to some suspected hemoptysis Stress ulcer prophylaxis -PPI Nutrition -will start Tube Feeds Code Status - Full Code Case discussed with Dr. Ybarra from Pulmonary Medicine Total Critical Care Time - 35 minutes Due to a high probability of clinically significant, life threatening deterioration, the patient required my highest level of preparedness to intervene emergently and I personally spent this critical care time directly and personally managing the patient. This critical care time included obtaining a history; examining the patient; pulse oximetry; ordering and review of studies; arranging urgent treatment with development of a management plan; evaluation of patient's response to treatment; frequent reassessment; and discussions with other providers. It was exclusive of separately billable procedures and treating other patients and teaching time. Please see Assessment and Plan section a
--- NOTE | 2021-01-14 10:15 | PM.CNPUL ---
Assessment and Plan Assessment and plan (1) Lung cancer: Code(s): C34.90 - Malignant neoplasm of unspecified part of unspecified bronchus or lung Status: Acute Assessment and Plan: History of squamous cell carcinoma arising is a single mass in the left perihilar region. Patient completed a course of SP RT between 02 27 20 and 03/12/2020. He had a CT scan at our facility on 11/12/2020 demonstrating enlarging left hilar mass and worsened mild mediastinal lymphadenopathy. PET scan on 11/26/2020 demonstrated mild to moderate increased uptake associated was both the enlarging mass at the left hilum surrounding the upper lobe bronchus as well as a few enlarging mediastinal lymph nodes consistent with progression of primary bronchogenic carcinoma and metastatic disease. I have spoken with Dr. Burden who performed a bronchoscopy on 01/02/2021. Patient did have narrowing of the upper and lower bronchi on the left side with post radiation changes of the bronchial epithelium with sloughing and necrosis. EBUS biopsies of lymph node station 10 L, 4R and 7 were negative for metastatic carcinoma. Of note there were 2 isolates of Pseudomonas from the procedure both of which are sensitive to Ceftin has, Cipro and Zosyn. Currently patient hemodynamically stable without any hemoptysis in our ICU and with a chest x-ray showing no lobar collapse or dense consolidations. Ventilator management per log driver. At this time I agree with treating for infection and both Pseudomonas isolates were sensitive to Zosyn. Emperic vanco pending cultures. He has no wheezes at this time and was initially treated for COPD exacerbation. I agree with Continue using his albuterol and ipratropium nebulizers and decreasing his steroids to an equivalent of prednisone 40 mg p.o. q.day for total of 5 days. Discussed with log driver, Dr. Worrell. Will sign off. Call with any questions. History of Present Illness History of Present Illness Consult date: 01/14/21 Requesting physician: Lyndsay Triplett MD Reason for consult: lung mass Chief complaint: COPD Narrative: This is a new Pulmonary consult for hemoptysis and respiratory failure. 54-year-old male with a history of squamous cell carcinoma arising is a single mass in the left perihilar region. Patient completed a course of SP RT between 02 27 20 and 03/12/2020. He had a CT scan at our facility on 11/12/2020 demonstrating enlarging left hilar mass and worsened mild mediastinal lymphadenopathy. PET scan on 11/26/2020 demonstrated mild to moderate increased uptake associated was both the enlarging mass at the left hilum surrounding the upper lobe bronchus as well as a few enlarging mediastinal lymph nodes consistent with progression of primary bronchogenic carcinoma and metastatic disease. Patient was seen by Dr. Eliseo Bland on 12/19/2020 and there was a discussion with my partner Dr. Kanchan Roman regarding bronchoscopic biopsy of the mediastinal lymph node. I spoke with Dr. Roman today and she spoke with Dr. Bland on 12/19 (see documented workload from 12/19) and the plan was to consult Dr. Burden regarding a bronchoscopy with EBUS or other vent interventional procedure as EBUS or distal lymph node biopsies are not performed at [facility]. Dr. Bland was going to contact Dr. Burden directly as both are [facility] doctors. I have spoken with Dr. Burden who performed a bronchoscopy on 01/02/2021. Patient did have narrowing of the upper and lower bronchi on the left side with post radiation changes of the bronchial epithelium with sloughing and necrosis. EBUS biopsies of lymph node station 10 L, 4R and 7 were negative for metastatic carcinoma. Of note there were 2 isolates of Pseudomonas from the procedure both of which are sensitive to Ceftin has, Cipro and Zosyn. On 01/13 patient presented to [facility] with possible emesis, hemetemesis and or hemoptysis with s
[2021-01-14 12:36] LABS: Glucose Point of Care 202 mg/dl (65-105)
[2021-01-14] MEDS: INSULIN ASPART (*BKC) 100 UNITS/ML SUB-Q (12:37)
[2021-01-14] MEDS: FENTANYL 2,500MCG/NS250ML(*CRX 2,500 MCG/250 ML BAG 10 MCG IV CONT (16:30)
[2021-01-14 18:14] LABS: Glucose Point of Care 153 mg/dl (65-105)
[2021-01-14] MEDS: DEXTROSE 5%/0.9% SOD CHL 1,000 ML 75 ML IV CONT (18:17)
--- NOTE | 2021-01-14 18:48 | PC.NURSE ---
Updated Raquel, significant other, on patient condition. Significant other stated he was taking liquid marijuana with EverClear that a friend showed him how to make. He only took it a couple times and it was only a little bit. He took it for the lung cancer
[2021-01-15] VITALS (19 sets, daily range): BP systolic 111–117; BP diastolic 64–70; PULSE 65–100; RESP 10–24; TEMP 36.7–37.2; O2SAT 94–99
[2021-01-15 00:26] LABS: Glucose Point of Care 151 mg/dl (65-105)
[2021-01-15] MEDS: IPRATROPIUM BR 0.02% INH SOLN 0.5 MG/2.5 ML VIAL INHALATION ×3 (03:10→13:09)
[2021-01-15] MEDS: ALBUTEROL SULFATE NEB 2.5 MG/0.5 ML INH 5 MG INHALATION ×3 (03:10→13:09)
[2021-01-15 04:46] LABS: Basophils Percent Auto 0.1 % (0.2-1.2); Eosinophils Absolute Auto 0.1 K/mm3 (0-0.3); Eosinophils Percent Auto 0.4 % (0-4.4); Hematocrit 38.1 % (42.0-52.0); Hemoglobin 12.4 g/dL (14.0-18.0); Immature Granulocyte Absolute 0.09 K/mm3 (0.00-0.031); Immature Granulocyte Percent A 0.7 % (0-0.5); Lymphocytes Absolute Auto 1.28 K/mm3 (0.9-3.2); Lymphocytes Percent Auto 9.3 % (18.3-44.2); Mean Corpuscular HGB Conc 32.5 g/dl (32-36); Mean Corpuscular Hemoglobin 29.4 pg (26-34); Mean Corpuscular Volume 90.3 fl (80-100); Mean Platelet Volume 8.5 fl (7.4-10.4); Monocytes Percent Auto 7.1 % (2.6-8.5); Neutrophils Absolute Auto 11.4 K/mm3 (1.3-6.7); Neutrophils Percent Auto 82.4 % (45.5-73.1); Platelet Count Result 266 k/mm3 (150-375); Red Blood Count 4.22 M/mm3 (4.6-6.20); Red Cell Distribution Width 12.7 % (11.5-14.5); White Blood Count 13.8 K/mm3 (4.5-10.0)
[2021-01-15 04:53] LABS: Alveolar/Arterial O2 Gradient 89.6 mmHg; Base Excess ABG 2.4 mEq/l (+/-2.0); Carboxyhemoglobin 0.3 % THb (0-2.0); Device VENTILATOR; Fractional Inspired Oxygen 30 %; HCO3 ABG 26.8 mEq/l (22.0-26.0); Methemoglobin ABG 0.3 %THb (0-1.5); Modified Allen's Test Pass; Oxygen Content ABG 17.7 %vol (16.0-22.0); Oxygen Saturation ABG 95.6 % (95.0-100.0); Oxyhemoglobin 94.3 % THb (90.0-100.0); PO2 ABG 76.1 mmHg (80.0-100.0); PO2 FiO2 Ratio Arterial Blood 2.54 %; Reduced Hemoglobin 5.1 %THb (0-5.0); Site Drawn LEFT RADIAL; Total Hemoglobin 13.3 g/dL (12.0-18.0); pH ABG 7.434 (7.350-7.450)
[2021-01-15 04:54] LABS: Arterial Blood Gas PEEP 5 cmH2O; Arterial Blood Gas Tidal Volume 500 ml; Arterial Blood Gas Vent Mode CMV; Arterial Blood Gas Ventilator rate 24 /MIN
[2021-01-15 04:56] LABS: Alanine Aminotransferase 17 U/L (4-50); Albumin Level 3.2 g/dL (3.5-5.1); Alkaline Phosphatase 66 U/L (38-126); Anion Gap 5 mmol/L (8-16); Aspartate Amino Transferase 15 U/L (17-59); Bilirubin,Total 0.2 mg/dL (0.2-1.3); Blood Urea Nitrogen 30 mg/dL (9-20); Calcium 8.8 mg/dL (8.4-10.2); Carbon Dioxide 28 mmol/L (22-30); Chloride 102 mmol/L (98-107); Estimated CRCL calculation 87 ml/min; Estimated Glomerular Filt Rate > 60; Glucose 187 mg/dL (65-110); Magnesium 2.3 mg/dL (1.6-2.3); Potassium 4.3 mmol/L (3.4-5.0); Sodium 135 mmol/L (137-145)
[2021-01-15] MEDS: FENTANYL 2,500MCG/NS250ML(*CRX 2,500 MCG/250 ML BAG 20 MCG IV CONT ×2 (07:24→09:15)
[2021-01-15] MEDS: BUDESONIDE RESPULE NEB 0.5 MG/2 ML AMP INHALATION (08:08)
[2021-01-15] MEDS: MINERAL OIL/WHITE PETROLATUM OINTMENT 1 APPLIC EACH EYE (08:34)
[2021-01-15] MEDS: methylPREDNISolone SOD SUCC 40 MG VIAL IV PUSH (08:34)
[2021-01-15 08:56] LABS: Alveolar/Arterial O2 Gradient 59.2 mmHg; Base Excess ABG -0.1 mEq/l (+/-2.0); Fractional Inspired Oxygen 30 %; HCO3 ABG 26.7 mEq/l (22.0-26.0); Oxygen Content ABG 18.8 %vol (16.0-22.0); Oxygen Saturation ABG 96.6 % (95.0-100.0); Oxyhemoglobin 95.6 % THb (90.0-100.0); PCO2 ABG 51.9 mmHg (35.0-45.0); PO2 ABG 93.7 mmHg (80.0-100.0); PO2 FiO2 Ratio Arterial Blood 3.12 %; Total Hemoglobin 13.9 g/dL (12.0-18.0); pH ABG 7.329 (7.350-7.450)
[2021-01-15 08:57] LABS: Device VENTILATOR; Modified Allen's Test Pass; Site Drawn RIGHT RADIAL
[2021-01-15 08:58] LABS: Arterial Blood Gas PEEP 5 cmH2O; Arterial Blood Gas Pressure Support 5 cmH2O; Arterial Blood Gas Vent Mode SPONTANEOUS
[2021-01-15] MEDS: MIDAZOLAM 100MG/NS 100ML(*CRX) 100 MG/100 ML BAG 6 MG IV CONT (09:00)
--- NOTE | 2021-01-15 09:37 | WPDINTPN ---
Progress Note: A&P Assessment and Plan (1) Acute respiratory failure with hypoxia and hypercarbia: Code(s): J96.01 - Acute respiratory failure with hypoxia; J96.02 - Acute respiratory failure with hypercapnia Status: Acute Assessment and Plan: Acute Respiratory failure secondary to COPD exacerbation, pneumonia with baseline lung cancer, ? hemoptysis ABG and PCXR reviewed 5/5 PSV SBT done for more than 1/2 hour. RSBI, ABGI and Vitals acceptable. Pt awake and following commands despite light sedation. Will extubate and monitor. NPO for now. Bipap PRN Continue short course of steroids and Bronchodilators Continue vancomycin and Zosyn Culture sent and are pending Discussed with pulmonary and records reviewed from outside hospital (2) Malignant neoplasm of upper lobe, left bronchus or lung: Code(s): C34.12 - Malignant neoplasm of upper lobe, left bronchus or lung Status: Acute Assessment and Plan: Patient has a history of medically inoperable newly diagnosed early stage (T1 N0 M0 or TX N1 M0) non-small cell lung cancer (squamous cell carcinoma) arising as a single mass in the left perihilar region. He completed a course of SBRT between 02/27/2020 and 03/12/2020. He had a CT 11/11/2020 which showed mediastinal adenopathy but relatively low uptake on PET. Per notes he had some respiratory infection prior to that and imaging was not definitive. The oncologist was considering bronchoscopic biopsy of mediastinal lymph nodes to evaluate for recurrent lung cancer. He had a bronchoscopy on 01/02/2021. Patient did have narrowing of the upper and lower bronchi on the left side with post radiation changes of the bronchial epithelium with sloughing and necrosis. EBUS biopsies of lymph node station 10 L, 4R and 7 were negative for metastatic carcinoma. Of note there were 2 isolates of Pseudomonas from the procedure both of which are sensitive to ceftazidime, Cipro and Zosyn. 01/13 CT scan done at [facility] showed 3.5 in to 2.5 cm left hilar mass with narrowing of upper and lower lobe bronchi also showed airspace opacities in right middle lobe suggestive of pneumonia No significant hemoptysis at this time over last 24 hours as patient was suctioned through is ETT (3) Sepsis: Code(s): A41.9 - Sepsis, unspecified organism Status: Acute Assessment and Plan: Patient presented with elevated lactic acid above 10 likely secondary to sepsis from pneumonia and COPD His lactic acidosis cleared with IV fluid bolus and he has not required any vasopressor Continue IV antibiotics as above Cultures have been sent and negative till date. (4) Obstructive sleep apnea: Onset Date: ~01/2020 Code(s): G47.33 - Obstructive sleep apnea (adult) (pediatric) Status: Acute Assessment and Plan: CPAP at night (5) COPD exacerbation: Code(s): J44.1 - Chronic obstructive pulmonary disease with (acute) exacerbation Status: Acute Assessment and Plan: See above (6) Hemoptysis: Code(s): R04.2 - Hemoptysis Status: Acute Assessment and Plan: No significant hemoptysis at this time over last 24 hours as patient was suctioned through is ETT (7) Tobacco abuse: Code(s): Z72.0 - Tobacco use Status: Acute Assessment and Plan: Currently intubated and sedated and not a candidate for counseling Additional Plan DVT prophylaxis -SCDs due to some suspected hemoptysis Nutrition - Tube Feeds on hold for breathing trial Code Status - Full Code Total Critical Care Time - 30 minutes Due to a high probability of clinically significant, life threatening deterioration, the patient required my highest level of preparedness to intervene emergently and I personally spent this critical care time directly and personally managing the patient. This critical care time included obtaining a history; examining the patient; pulse oximetry; ordering and review of
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
[2021-01-15] MEDS: DEXTROSE 5%/0.9% SOD CHL 1,000 ML 75 ML IV CONT (10:25)
--- NOTE | 2021-01-15 10:52 | PCDIET ---
Nutrition Follow-Up Complete: Nutrition Diagnosis: Inadequate oral intake related to oral intubation as evidenced by NPO status. Nutrition Goal: Patient to meet estimated nutritional needs. Goal in progress. Patient previously tolerating tube feedings, but now extubated and NPO. Recommend [employer] evaluation prior to diet advancement. Last recorded weight is 96.5 kg which is increased from last review. Bowel Motility: No documented BM as of yet. Labs Reviewed: WBC (13.8), RBC (4.22), Hgb(12.4), Hct (38.1), Glu (187), BUN (30), Na (135) Meds Noted: D5NS at 75mL/hr, Albuterol, Pulmicort, Zosyn, Fentanyl, Vancomycin, Atrovent, Solu Medrol, Versed Additional Notes: No documented skin breakdown. Will continue to monitor with same goal. Nutrition Monitoring and Evaluation: Follow up every 3 days.
--- NOTE | 2021-01-15 13:05 | P.PNCROSS_ITS ---
Event Note Event Note Event Note: Patient was successfully extubated early this morning and post test patient was agitated and uncooperative with nursing staff. I spoke patient the room and he requested that his Oneill be removed and he be allowed to use the bathroom which we did. Few minutes later patient was using abusive language with the nursing staff and requested that he be discharged as he did not want to stay in the hospital anymore. He walking around in the room with telemetry leads off and told me that he wants to go home. When I tried to gather more information regarding where he lives and how he will get home he initially told me that it was none of my business but later told me that he lives in [place] and would take a cab to go home. Patient is alert awake and appropriate although uncooperative. We had his girlfriend on the phone to try to calm him down but he told her that he was coming home. I explained to him that his pneumonia and respiratory failure could worsen and which may even lead to his if he leaves against medical advice. He responded that he does not care and is fine with it. He asked me to give him a paper to sign so that he can leave. He said that how hard it is for us to give him the paper to sign and let him go. Patient will leave against medical advice.
--- NOTE | 2021-01-15 20:46 | PM.DS ---
DS: Admitting Diagnosis Discharge Date 01/15/21 Admitting Diagnosis (1) Hypercapnic respiratory failure: Code(s): J96.92 - Respiratory failure, unspecified with hypercapnia Status: Acute Assessment and Plan: PATIENT IS CURRENTLY ON VENTILATOR SUPPORT PULMONARY TOILET VENT MANAGEMENT PER CRITICAL CARE (2) Obstructive sleep apnea: Onset Date: ~01/2020 Code(s): G47.33 - Obstructive sleep apnea (adult) (pediatric) Status: Acute Assessment and Plan: CURRENTLY ON VENTILATOR (3) Malignant neoplasm of upper lobe, left bronchus or lung: Code(s): C34.12 - Malignant neoplasm of upper lobe, left bronchus or lung Status: Acute Assessment and Plan: PATIENT IS UNDERGOING RADIATION (4) COPD exacerbation: Code(s): J44.1 - Chronic obstructive pulmonary disease with (acute) exacerbation Status: Acute Assessment and Plan: BREATHING TREATMENT WITH ALBUTEROL AND ATROVENT SYSTEMIC STEROIDS (5) Tobacco abuse: Code(s): Z72.0 - Tobacco use Status: Acute Assessment and Plan: NICOTINE PATCH NEEDED (6) Chronic pain: Code(s): G89.29 - Other chronic pain Status: Inactive Assessment and Plan: CURRENTLY ON FENTANYL, VERSED AND PROPOFOL DS: Discharge Diagnosis Discharge Diagnosis (1) Sepsis: Code(s): A41.9 - Sepsis, unspecified organism Status: Acute (2) Hemoptysis: Code(s): R04.2 - Hemoptysis Status: Acute (3) Acute respiratory failure with hypoxia and hypercarbia: Code(s): J96.01 - Acute respiratory failure with hypoxia; J96.02 - Acute respiratory failure with hypercapnia Status: Acute (4) COPD exacerbation: Code(s): J44.1 - Chronic obstructive pulmonary disease with (acute) exacerbation Status: Acute (5) Hypercapnic respiratory failure: Code(s): J96.92 - Respiratory failure, unspecified with hypercapnia Status: Acute (6) Obstructive sleep apnea: Onset Date: ~01/2020 Code(s): G47.33 - Obstructive sleep apnea (adult) (pediatric) Status: Acute (7) Malignant neoplasm of upper lobe, left bronchus or lung: Code(s): C34.12 - Malignant neoplasm of upper lobe, left bronchus or lung Status: Acute (8) Tobacco abuse: Code(s): Z72.0 - Tobacco use Status: Acute (9) Squamous cell carcinoma lung: Code(s): C34.90 - Malignant neoplasm of unspecified part of unspecified bronchus or lung Status: Acute DS: Summary Hospital Course Hospital Course: 55-year-old male with known metastatic lung CA stage III undergoing radiation therapy which transferred to [facility] where he had been admitted for acute on chronic respiratory failure and intubated by EMS prior to arrival to [facility]. Prior to intubation patient had reported hemoptysis and shortness of breath. He was admitted directly to the ICU and both pulmonology and Critical Care were consulted. Pulmonology recommendations for COPD exacerbation were to continue albuterol and ipratropium nebulizers and decreasing his steroids to an equivalent of prednisone 40 mg p.o. q.day for total of 5 days. Vent management per critical care physician who placed patient on vancomycin and Zosyn for coverage of pneumonia. Additionally was given IV fluids for elevated lactic acidosis associated w sepsis secondary to pneumonia. On day 2 length of stay patient was extubated. Shortly thereafter he left AMA. Time Spent with Patient Time attestation: Total time spent providing and/or coordinating discharge services: Exam Narrative: GEN: NAD, AAOx2, agitated uncooperative and climbing out of bed HEENT: NCAT, MMM, EOMI Neck: no JVD Lungs: No acute respiratory distress symmetric chest rise Ext: moves all, no cyanosis, no clubbing, no edema Neuro: Cranial nerves grossly intact no focal neurological deficits appreciated Psych: Agitated and combative DS:
== END 2021-01-15 16:04 | disposition left against medical advice (07) | DRG 871 ==
PROVIDERS: Internal Medicine; Admitting Provider Internal Medicine; PCP Internal Medicine; Visit Provider Hospitalist
DX: A41.9 Sepsis, unspecified organism (principal); J96.01 Acute respiratory failure with hypoxia; J96.02 Acute respiratory failure with hypercapnia; J18.9 Pneumonia, unspecified organism; C34.12 Malignant neoplasm of upper lobe, left bronchus or lung; J44.1 Chronic obstructive pulmonary disease with (acute) exacerbation; J44.0 Chronic obstructive pulmonary disease with (acute) lower respiratory infection; R04.2 Hemoptysis; F17.210 Nicotine dependence, cigarettes, uncomplicated; G47.33 Obstructive sleep apnea (adult) (pediatric); G89.29 Other chronic pain; Z79.899 Other long term (current) drug therapy
CPT/HCPCS: 36415; 36600; 71045; 80048; 80053; 82375; 82805; 82948; 83050; 83735; 85025; 85027; 85610; 87040; 93306; 94002; 94003; 94640; A9270; J1815; J1940; J2250; J2543; J2704; J2920; J2930; J3010; J3370; J7042